=== PATIENT | male | born 1960 | race Hispanic/Latino ===

== ENCOUNTER 2018-03-11 19:02 | Emergency (ER) | payer BC ==
[2018-03-11 19:33] VITALS: TEMP 98.3; O2SAT 99
[2018-03-11 20:40] LABS: BASO % 0.6 % (0.0-2.0); EOS # 0.1 K/uL (0.0-0.7); EOS % 1.4 % (0.0-4.0); HEMOGLOBIN 15.7 g/dL (12.0-18.0); LYMPH # 1.8 K/uL (1.0-4.3); LYMPH % 24.1 % (20.0-40.0); MEAN CELL VOLUME 85.2 fl (80.0-94.0); MEAN CORPUSCULAR HEMOGLOBIN 28.6 pg (27.0-31.0); MEAN CORPUSCULAR HGB CONC 33.6 g/dL (33.0-37.0); MEAN PLATELET VOLUME 7.6 fl (7.2-11.7); MONO # 0.5 K/uL (0.0-0.8); MONO % 6.8 % (0.0-10.0); NEUT % 67.1 % (50.0-75.0); RBC 5.47 Mil/uL (4.40-5.90); RED CELL DISTRIBUTION WIDTH 13.3 % (11.5-14.5); WHITE BLOOD COUNT 7.5 K/uL (4.8-10.8)
[2018-03-11 20:48] LABS: ALB/GLOB RATIO 1.3 (1.0-2.1); ALBUMIN 4.3 g/dL (3.5-5.0); ALT/SGPT 33 U/L (21-72); AST/SGOT 30 U/L (17-59); BLOOD UREA NITROGEN 24 mg/dl (9-20); CALCIUM 9.4 mg/dL (8.4-10.2); GFR NON-AFRICAN AMERICAN 52
--- NOTE | 2018-03-11 21:45 | ED PDOC ---
HPI: General Adult Time Seen by Provider: 03/11/18 19:33 Chief Complaint (Nursing): Weakness/Neurological Deficit Chief Complaint (Provider): Numbness/Tingling of hands and feet History Per: Patient History/Exam Limitations: no limitations Onset/Duration Of Symptoms: Days (2x) Current Symptoms Are (Timing): Still Present Severity: Moderate Additional Complaint(s): 57 year old male with a past medical history of coronary artery dise ase and pre-diabetes presents to the ED for an evaluation of intermittent numbness and tingling to the hands and feet that started 2x days ago. Patient also reports that at some times he experiences the numbness and tingling on his scalp, and that he has been experiencing mild anxiety. Patient denies having chest pain, shortness of breath, headaches, nausea, and vomiting, weakness of extremities or otherwise. PMD: Ramírez Segura MD Past Medical History Reviewed: Historical Data, Nursing Documentation, Vital Signs Vital Signs: Last Vital Signs Temp 98.3 F 03/11/18 19:30 Pulse 75 03/11/18 19:30 Resp 16 03/11/18 19:30 BP 118/74 03/11/18 19:30 Pulse Ox 99 03/11/18 19:30 - Medical History PMH: CAD, HTN, Hypercholesterolemia Other PMH: pre-diabetes - Surgical History Surgical History: Coronary Stent (x1) - Family History Family History: States: No Known Family Hx - Social History Alcohol: Occasional Drugs: Denies - Allergies Allergies/Adverse Reactions: Allergies Allergy/AdvReac Type Severity Reaction Status Date / Time shellfish derived Allergy DIARRHEA Verified 03/11/18 19:28 Review of Systems ROS Statement: Except As Marked, All Systems Reviewed And Found Negative Cardiovascular: Negative for: Chest Pain Respiratory: Negative for: Shortness of Breath Gastrointestinal: Negative for: Nausea, Vomiting Neurological: Positive for: Numbness (and tingling of both hands and feet, occasionally on scalp). Negative for: Weakness, Headache Psych: Positive for: Anxiety (mild) Physical Exam - Reviewed Nursing Documentation Reviewed: Yes Vital Signs Reviewed: Yes - Physical Exam Appears: Positive for: Well, Non-toxic, No Acute Distress Head Exam: Positive for: ATRAUMATIC, NORMOCEPHALIC Skin: Positive for: Normal Color, Warm, Dry Cardiovascular/Chest: Positive for: Regular Rate, Rhythm Respiratory: Positive for: Normal Breath Sounds Extremity: Positive for: Normal ROM Neurologic/Psych: Positive for: Alert, superintendent police II-XII (in tact), Oriented (3x). Negative for: Motor/Sensory Deficits - Laboratory Results Result Diagrams: 03/11/18 20:31 03/11/18 20:31 - ECG O2 Sat by Pulse Oximetry: 99 (RA) Pulse Ox Interpretation: Normal Medical Decision Making Medical Decision Makin:33 Initial impression: 57 year old male with paresthesias. Intial plan: * EKG * Labs * reevaluation 21:30 Labs show no clinically significant abnormalities, and is not symptomatic in the ED. Patient is stable upon discharge, and has been given instructions to follow up with his PMD in 1-2 days. Return precautions given. ---- Scribe Attestation: Documented byErica Canela, acting as a scribe for Bob Fagan MD. Provider Scribe Attestation: All medical record entries made by the Scribe were at my direction and personally dictated by me. I have reviewed the chart and agree that the record accurately reflects my personal performance of the history, physical exam, medical decision making, and the department course for this patient. I have also personally directed, reviewed, and agree with the discharge instructions and disposition. Disposition - Clinical Impression Clinical Impression: Paresthesia - Disposition Disposition Time: 21:30 Condition: STABLE Instructions: Paresthesias (DC) Forms: [employer] (Al[place]ian)
[2018-03-11 21:48] VITALS: BP 106/74; PULSE 72; RESP 18
--- NOTE | 2018-03-12 19:25 | CARD ---
APPROVED REPORT Date of service: 03/11/2018 EKG Measurement Heart [id number] <Conclusion> Normal sinus rhythm Nonspecific T wave abnormality Abnormal ECG
== END 2018-03-11 21:49 | disposition home or self-care (01) ==
LOC: H.ER 19:02
DX: R20.2 Paresthesia of skin (principal); E78.00 Pure hypercholesterolemia, unspecified; I10 Essential (primary) hypertension; I25.10 Atherosclerotic heart disease of native coronary artery without angina pectoris; R73.03 Prediabetes; Z95.5 Presence of coronary angioplasty implant and graft